=== PATIENT | male | born 1945 | race Caucasian/White ===

== ENCOUNTER 2020-10-12 10:48 | Inpatient (IN) | payer OTHER ==
[~2020-10-12] VITALS: Ht 190.5 cm; Wt 62.6 kg
[2020-10-12 10:49] VITALS: BP 114/90
[2020-10-12 11:56] LABS: URINE BILIRUBIN 2+ (Negative); URINE BLOOD 3+ (Negative); URINE CLARITY CLEAR; URINE COLOR YELLOW; URINE GLUCOSE-RANDOM* NEGATIVE (Negative); URINE KETONES 1+ (Negative); URINE LEUKOCYTES-REFLEX NEGATIVE (Negative); URINE NITRITE-REFLEX NEGATIVE (Negative); URINE PROTEIN (DIPSTICK) 3+ (Negative); URINE SPECIFIC GRAVITY >= 1.030 (1.005-1.035); URINE UROBILINOGEN 0.2 E.U./dl (0.2-1.0)
[2020-10-12 12:11] LABS: ABSOLUTE NEUTROPHILS 7.8 thou/uL (1.4-8.2); BASOPHILS 0.1 % (0.0-2.0); HEMATOCRIT 46.6 % (42.0-52.0); HEMOGLOBIN 15.7 gm/dL (14.0-18.0); LYMPHOCYTES 8.1 % (24.0-44.0); MCH 32.9 pg (26.0-34.0); MCHC 33.6 g/dL (28.0-37.0); PLATELET COUNT 208 thou/uL (150-400); POLYS 82.8 % (36.0-66.0); RBC 4.75 mil/uL (4.50-6.00); RDW 14.3 % (10.5-14.5); WBC 9.5 thou/uL (4.0-11.0)
[2020-10-12 12:22] LABS: FINE GRANULAR CASTS 0-3 Few /LPF (None Seen); HYALINE CASTS 4-10 Moderate /LPF (None Seen)
[2020-10-12 12:24] LABS: CRYSTALS None Seen /LPF (None Seen); SQUAMOUS 0-3 Few /LPF (0-3); URINE RBC 3-10 Few /HPF (NONE SEEN); URINE WBC-REFLEX 6-15 Few /HPF (0-5)
[2020-10-12 12:24] LABS: MAGNESIUM 1.3 mg/dL (1.8-2.4); PHOSPHORUS 4.5 mg/dL (2.6-4.7)
[2020-10-12 12:25] LABS: BACTERIA-REFLEX 1-9 Few /HPF (None Seen)
[2020-10-12 12:25] LABS: CREATININE 1.7 mg/dL (0.7-1.3); POTASSIUM 4.5 mmol/L (3.5-5.1)
[2020-10-12 12:28] LABS: APTT 25.7 Seconds (24.5-32.8); INR 0.94; PROTIME 10.3 Seconds (10.5-12.1)
[2020-10-12 12:42] LABS: ALBUMIN 3.1 g/dL (3.4-5.0); TOTAL BILIRUBIN 0.5 mg/dL (0.2-1.0); TOTAL PROTEIN 7.8 g/dL (6.4-8.2); TROPONIN-I 0.07 ng/mL (<0.06)
[2020-10-12 14:21] LABS: AMP/METHAMP Negative (Negative); BARBITURATES Negative (Negative); BENZODIAZEPINES Negative (Negative); COCAINE Negative (Negative); METHADONE Negative (Negative); OPIATES Negative (Negative); PCP Negative (Negative)
[2020-10-12 14:34] VITALS: BP 136/73
--- NOTE | 2020-10-12 14:55 | NUR ---
IV TEAM AT BEDSIDE TO PLACE LINE
[2020-10-12 16:08] VITALS: BP 127/68
--- NOTE | 2020-10-12 17:01 | NUR ---
VAT CONSULTED FOR PICC PLACEMENT. PT'S LABS,HX,MEDS,ORDER AND CONSENT VERIFIED. DISCUSSED BENEFITS AND RISK WITH PT, VERBALIZED UNDERSTANDING. RONEN FRANCIS WAS WIDELY PATENT WITH USG. 4FR DL POWER PICC TRIMMED TO 40CM INSERTED TO 0CM. PLACEMENT CONFIRMED WITH PEAKED P-WAVES ON 3CG. PT TOLERATED WELL
--- NOTE | 2020-10-12 17:13 | NUR ---
PICC RELEASED FOR IMMEDIATE USE PER PROTOCOL
--- NOTE | 2020-10-12 20:16 | NUR ---
RN ADMITTED PT FROM ER ABOUT 1700PM, PT IS A&OX2 ( PERSON AND PLACE), PT IS CONFUSED AT TIME, PT'S ADMITTED ASSESSMENT HAS DONE, PT'S CIWA SCORES ARE 4, NO MEDICATION NEED PER ORDER. PT HAS STARTED IV FLUID AND MAG REPLAEMENT , RN HAS REPORTED TO NEXT SHIFT TO KEEP EYE ON PT, AND TO ASSESSMENT PT'S WOUND.
[2020-10-12 21:05] VITALS: BP 119/57
--- NOTE | 2020-10-13 02:18 | NUR ---
PT WAS OBSERVED LYING DOWN ON HIS BED WATCHING TV AT SHIFT CHANGE.PT C/O PAIN TO HIS L WRIST AND HIP,COMMERCIAL PLUMBER ON DUTY NOTIFIED,ORDER NOTED AND CARRIED OUT.PT HAS ULCER TO HIS L WRIST,L HIP AND L SECOND TOE.DRSG DONE.MULTIPLE ABRAISIONS NOTED TO KNEE,ELBOW,CHEST AND L ANKLE.PT WITH R BKA.CIWA PROTOCOL CONT,SCORED 3 ,NO MEDS REQUIRED.PT REQUESTING FOR SODA MULTIPLE TIMES,EDUCATION GIVEN DUE TO DM.PT CONT ON IVF.PT SLEEPING ON HIS BD AT THIS TIME.CALL LIGHT WITHIN REACH.
[2020-10-13 05:00] VITALS: BP 111/73
[2020-10-13 05:29] LABS: HEMATOCRIT 30.9 % (42.0-52.0); MCH 33.3 pg (26.0-34.0); MCHC 33.8 g/dL (28.0-37.0); MCV 98.6 fL (80.0-100.0); RBC 3.14 mil/uL (4.50-6.00); RDW 13.9 % (10.5-14.5); WBC 5.5 thou/uL (4.0-11.0)
[2020-10-13 05:35] LABS: HEMOGLOBIN 10.5 gm/dL (14.0-18.0)
[2020-10-13 05:43] LABS: ALBUMIN 2.2 g/dL (3.4-5.0); ANION GAP 11 mmol/L (7-16); BUN 40 mg/dL (7-18); CALCIUM 7.6 mg/dL (8.5-10.1); CHLORIDE 106 mmol/L (98-107); CO2 25 mmol/L (21-32); CREATININE 1.2 mg/dL (0.7-1.3); GLUCOSE 110 mg/dL (74-106); MAGNESIUM 1.8 mg/dL (1.8-2.4); POTASSIUM 3.7 mmol/L (3.5-5.1); SGOT 49 U/L (15-37); SGPT 34 U/L (16-63); SODIUM 142 mmol/L (136-145); TOTAL BILIRUBIN 0.4 mg/dL (0.2-1.0); TOTAL PROTEIN 5.5 g/dL (6.4-8.2); TROPONIN-I <0.06 ng/mL (<0.06)
[2020-10-13 07:26] VITALS: BP 122/61
--- NOTE | 2020-10-13 07:32 | EKG ---
[place] [address] [facility] [address] ELECTROCARDIOGRAM REPORT Name: RALF MORILLO Room #: 351-P ADM IN M.R.#: [id number] Admission: 10/12/20 Attend Phys: Pranay Gordillo MD Discharge: Date of : 47 Report #: [id number] [facility] Test Date: 2020-10-12 Test Time: 16:15:12 Pat Name: RALF MORILLO Department: Room: 351 P Gender: M Solar Pv Installer: FSCHWALBE : 1945 Requested By: Pranay Gordillo Order Number: [id number] MD: Ion Rodríguez Measurements Intervals [place] Rate: 129 P: 72 UT: 43 QRS: -64 QRSD: 178 T: -67 QT: 392 QTc: 575 Interpretive Statements Sinus tachycardia, artifact Multiform ventricular premature complexes Probable left atrial enlargement RBBB and LAFB Baseline wander in lead(s) V6 No previous ECG available for comparison Electronically Signed On 10-13-2020 7:31:57 CDT by Ion Rodríguez [email or web address] <ELECTRONICALLY SIGNED> By: Ion Rodríguez MD, [facility] 10/13/2031 1615 14 Ion Rodríguez MD, [facility] /EPI
[2020-10-13 11:27] VITALS: BP 108/60
--- NOTE | 2020-10-13 14:40 | EKG ---
[address] [place] [address] ELECTROCARDIOGRAM REPORT Name: RALF MORILLO Room #: 351-P ADM IN M.R.#: [id number] Admission: 10/12/20 Attend Phys: Pranay Gordillo MD Discharge: Date of : 47 Report #: [id number] 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 : 1945 Requested By: Baylee Chiu Order Number: [id number] MD: Ion Rodríguez Measurements Intervals [place] Rate: 99 P: 86 UT: 210 QRS: 175 QRSD: 145 T: 31 QT: 381 QTc: 489 Interpretive Statements Sinus tachycardia Multiple ventricular premature complexes Borderline prolonged UT interval Left atrial enlargement Nonspecific intraventricular conduction delay Inferior infarct, old No previous ECG available for comparison Electronically Signed On 10-13-2020 14:40:31 CDT by Ion Rodríguez [email or web address] <ELECTRONICALLY SIGNED> By: Ion Rodríguez MD, [facility] 10/13/20 1440 D: [id number] Ion Rodríguez MD, FACC /EPI
--- NOTE | 2020-10-13 15:40 | NUR ---
INITIAL ASSESSMENT: Received consult. BRANDY reviewed chart and spoke with nursing and attending physician. Pt was admitted from home after a fall at home. Pt was laying on the ground for about two days after the fall. Pt with hx of right BKA. Therapy has been ordered to evaluate pt for discharge needs. BRANDY met with pt at bedside. Introduced role of SW. Pt is alert/orientated x 4. Pt reports he lives at home alone in a 3rd level apt at [facility]. Pt has a dog, who is currently being taken care of by a neighbor. Pt has elevator access. Pt states he has HH through [employer] and Medicaid in-home care through [facility]. Pt has been to [facility], [facility] and [facility] in the past. Pt reports that he has been fully vaccinated for COVID. Pt has a scooter at home and prosthesis for right BKA. Pt states that his loan collector through [place], has been working on moving him into an ADA compliant apt in his complex. Pt is concerned he may lose that apt while in the hospital. Pt does not have contact info for his classification case manager or who is in charge of the apt. BRANDY provided pt with contact info for BRANDY to provide to his loan collector. Pt states he uses [facility] for in-home Medicaid services. BRANDY provided pt with in-network SNF list for review. BRANDY spoke with deonna at [facility], who states that pt is currently on service for RN and PT servvices. BRANDY spoke with Concha at [facility] who states pt has caregivers in his apt 5 hours 15 minutes daily. Concha will try to find a contact number for pt's classification case manager through [place]. BRANDY is following to assist as needed with discharge planning.
[2020-10-13 19:25] VITALS: BP 122/56
--- NOTE | 2020-10-13 19:52 | NUR ---
RN ASSUMED PT'S CARE AT 0700AM, PT IS A&OX2 ( PERSON AND PLACE), PT CAN FOLLOW COMMANDS, PT IS CONTINUING IV FLUDS AND WOUND CARE , PT HAS PT/OT TO WORK WITH HIM , PT'S VS ARE STABLE, PT DENIES PAIN AND SOB AT DAY SHIFT.
[2020-10-14 03:36] VITALS: BP 124/75
--- NOTE | 2020-10-14 04:34 | NUR ---
PROGRESS PT ALERT AND ORIENTED X4, REPORTS PAIN TO LEFT SIDE FROM WOUNDS FROM FALL REPORTED RELIEF WITH DRESSING CHANGES. EXTREMETIES CLEANSED WITH SOAP AND WATER, WOUNDS CLEANSED WITH SALINE GENTAMYCIN APPLIED, XEROFORM, ABD AND WRAPPED WITH KERLIX. TELE INTACT READING SA RATES IN 69. CIWA SCORE 1 ATIVAN 1 MG PO X1 FOR SLIGHT ANXIETY AND TO HELP PT SLEEP.
[2020-10-14 07:19] VITALS: BP 129/60
[2020-10-14 09:37] LABS: HEMATOCRIT 29.7 % (42.0-52.0); HEMOGLOBIN 9.8 gm/dL (14.0-18.0); MCH 32.6 pg (26.0-34.0); MCHC 32.9 g/dL (28.0-37.0); MCV 99.2 fL (80.0-100.0); RBC 2.99 mil/uL (4.50-6.00); WBC 5.6 thou/uL (4.0-11.0)
[2020-10-14 09:53] LABS: CALCIUM 7.6 mg/dL (8.5-10.1); CREATININE 0.9 mg/dL (0.7-1.3); MAGNESIUM 1.9 mg/dL (1.8-2.4); POTASSIUM 3.9 mmol/L (3.5-5.1); TOTAL BILIRUBIN 0.3 mg/dL (0.2-1.0); TOTAL PROTEIN 4.8 g/dL (6.4-8.2)
[2020-10-14 11:21] VITALS: BP 118/78
--- NOTE | 2020-10-14 12:26 | NUR ---
CM F/U WITH PT RE: SNF CHOICE. PT BECAME AGITATED THROUGHOUT THE COURSE OF CONVERSATION PT IS DISAGREEABLE ABOUT GOING TO SNF, PT HAS STATED ESSENTIALLY THERAPY WILL BE INEFFECTIVE D/T BEING AN BKA AND NOT HAVING HIS ELECTRIC W/C AT THE SNF. PT EXPRESSED CONCERNED THAT HE WILL LOSS IS ADA APT IF THEY FIND OUT HE HAS BEEN HOSPITALIZED AND/OR GO INTO SNF FOR A FEW/SEVERAL WEEKS B/C IT WOULD APPEAR HE IS INCAPABLE OF LIVING INDEPENDENTLY. CM TO [place] BACK WITH PT AFTER LUNCH TO CONTINUE THE DISCUSSION.
--- NOTE | 2020-10-14 15:09 | NUR ---
ASSUMED PT CARE AT SHIFT CHANGE, TYRA ADDED TO PT BED. PT IS VERY EASILY AGITATED/CRANKY WHEN DISCUSSING DC. PT STATES HE WANTS HIS DOG, HIS MOTOR WC, AND A PLACE TO SMOKE. THIS RN COMMUNICATED WITH BRANDY STRONG. URINE YELLOW, WILSON PATENT.
[2020-10-14 16:08] VITALS: BP 123/65
--- NOTE | 2020-10-14 17:19 | NUR ---
WOUND CARE PERFORMED. PICTURES DOCUMENTED IN PT CHART. PT TOLERATED WELL.
[2020-10-14 19:20] VITALS: BP 130/65
[2020-10-14 23:30] VITALS: BP 125/55
[2020-10-15 03:17] VITALS: BP 139/57
--- NOTE | 2020-10-15 04:45 | NUR ---
PT HAS [place] ACCENT. A/0X4 AND CAN BE TAKEN GRUMPY. PT ON BEDREST, DUE TO RECENT FALL. FOLLOWING POC WITH IVF. GAVE PO ATIVAN TO HELP PT RELAX. HOURLY ROUNDING.
[2020-10-15 04:53] LABS: HEMOGLOBIN 9.3 gm/dL (14.0-18.0); MCH 32.9 pg (26.0-34.0); MCHC 33.2 g/dL (28.0-37.0); RBC 2.83 mil/uL (4.50-6.00); RDW 13.9 % (10.5-14.5); WBC 5.2 thou/uL (4.0-11.0)
[2020-10-15 05:05] LABS: CALCIUM 7.8 mg/dL (8.5-10.1); CREATININE 0.8 mg/dL (0.7-1.3); MAGNESIUM 1.5 mg/dL (1.8-2.4); POTASSIUM 3.8 mmol/L (3.5-5.1)
--- NOTE | 2020-10-15 07:37 | NUR ---
YEVGENIY PGD REGARDING VTACH DURING NIGHT.
[2020-10-15 07:50] VITALS: BP 120/58
--- NOTE | 2020-10-15 10:19 | HC ---
[facility] [place] [address] CONSULTATION Name: RALF MORILLO Room #: 351-P ADM IN M.Arun.#: [id number] Admission: 10/12/20 Attend Phys: Pranay Gordillo MD Discharge: Date of : 46 Report #: [id number] THIS REPORT FOR: cc: FAM - Family physician unknown FAM - Family physician unknown River Izaguirre DO ~ DOC #: [id number] RIVER Izaguirre DO DATE OF SERVICE: 10/13/2020 INPATIENT PSYCHIATRIC EVALUATION FOR CAPACITY TO MAKE HEALTHCARE DECISIONS PRIMARY TEAM ATTENDING: Pranay Gordillo MD CONSULTING PSYCHIATRIST: River Izaguirre DO SOURCES OF INFORMATION: Chart review, discussion with Dr. Gordillo and bedside interview with the patient. CHIEF COMPLAINT: Unspecified. HISTORY OF PRESENT ILLNESS: This is a 75-year-old male with a number of history of chronic health problems including amputation of one leg. The patient was seen at bedside today. He was on some oxygen, but was alert and fully oriented except he did not know the date, believed it was vs . The patient was able to speak with me about his health care condition. From his discussion as well as chart review, it was clear that he lives on his own in independent living. The patient had a fall a couple of days before the admission, could not get up. 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 The patient admits that he should be living in an assisted living facility where he has 24-hour assistance. He is willing to do that. He states that he can only afford about a 1000 dollars a month. He states the assisted living is around 4000 dollars a month. The patient unfortunately is correct about that, the goign rate is around that figure. The patient did not admit to me to history of chronic and daily alcohol abuse, but this is certainly a possibility. The patient does currently receive home health care. PAST MEDICAL HISTORY: Includes acute kidney injury, hypomagnesemia, lactic acidosis, rhabdomyolysis. PAST SURGICAL HISTORY: Includes right BKA, left toe amputations. PSYCHIATRIC HISTORY: Includes chronic tobacco abuse, possible alcohol abuse. [facility] [address] [place] [address] CONSULTATION Name: RALF MORILLO Room #: 351-P ADM IN MBjorn.#: [id number] Admission: 10/12/20 Attend Phys: Pranay Gordillo MD Discharge: Date of : 47 Report #: [id number] REVIEW OF SYSTEMS: a 14-point review of systems was done and was negative other than what is HPI per Dr. Gordillo's note: The patient was admitted for severe rhabdomyolysis, given IV fluids. LABORATORY DATA: Of note, this admission include urine culture that was negative. Blood cultures that were negative so far. Significant laboratories from 10/13, H and H 10.5 and 30.9, likely dilutional in nature because previously 15.7 and 46.6, white count 5.5, platelet count 121, down from 208. Coags: PT 10.3, INR 0.94. Chemistries: Blood sugar running 110 today. Magnesium was 2.2. Admission sodium 142, potassium 3.7 , chloride 106, bicarbonate 25, anion gap 11, BUN 40, creatinine 1.2, estimated GFR 59. Lactic acid was 2.5, calcium 10.6, which is low; phosphorus 4.5, magnesium 2.2, total bilirubin 0.4. GGT 12. AST slightly high at 49, ALT normal at 34, . CK 1480, albumin 2.2. B12 46. Folate 27. TSH 3.192, free T4 slightly high at 1.5. Blood alcohol level was 0. Urine toxicology was negative. He did have some abnormal findings in his urine, but again negative by culture, positives were ketones, blood, some protein. 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 Chest x-ray this admission showed no acute cardiopulmonary findings. PHYSICAL EXAMINATION: VITAL SIGNS: Temperature afebrile, pulse 80, respirations 20, BP 122/56. MUSCULOSKELETAL: Lying in bed with the back of the bed having propped up. Appearing, disheveled. MENTAL STATUS EXAMINATION: This is a well-developed quite ill-appearing male appearing stated age. Attention fair. Concentration limited. Speech hoarse, but normal rate. Thought process, linear and goal directed. THOUGHT CONTENT: mood/affect: constrcited, congruent, frustrated Focused on his physical and medical situation. Denied suicidal intent or plan. He denied homicidal intent or plan. Denies auditory, visual, or tactile hallucinations. Memory not formally tested, but was able to relate to events noted in the medical chart in the past few days. Insight and judgment were fair and limited respectively. Fund of knowledge, slightly above average. FORMULATION: A 75-year-old male admitted after a fall, rhabdomyolysis, numerous medical problems. [facility] [address] [place] [address] CONSULTATION Name: RALF MORILLO Room #: 351-P ADM IN M.Arun.#: [id number] Admission: 10/12/20 Attend Phys: Pranay Gordillo MD Discharge: Date of : 47 Report #: [id number] DIAGNOSES: At this time is delirium, secondary to general medical condition, resolving. Substance use disorder for alcohol suspected, though not proven. Deconditioning and debility. FINDINGS: Regarding the question of capacity to make healthcare decision, given that he was almost fully oriented to month, year, day, several days off by date, is somewhat a good indicator; however, the reason what I would find this patient does presently have capacity to make medical and healthcare decisions if he could discuss with me and relate the events that have happened and the risks that he is facing by living alone and understanding the need for assisted living. This patient does present a common, but very practical problem of geriatric aware of the funding sources are just not there to serve a patient like this. Hopefully, the case management staff and Dr. Gordillo will find a way to get this patient into assisted living level of care. Findings were relayed to Dr. Gordillo. Time spent on this case was greater than 45 minutes. DO DAMARI White/LINDSAY/LUCIANO <ELECTRONICALLY SIGNED> By: River Izaguirre DO 10/15/20 1019 [id number] [id number] River Izaguirre DO /nt
--- NOTE | 2020-10-15 11:06 | 2DMMODE ---
[facility] [place] [address] 2 D/M-MODE ECHOCARDIOGRAM Name: RALF MORILLO Room #: 351-P ADM IN M.R.#: [id number] Admission: 10/12/20 Attend Phys: Pranay Gordillo MD Discharge: Date of : 47 Report #: [id number] THIS REPORT FOR: cc: FAM - Family physician unknown FAM - Family physician unknown Ion Rodríguez MD [facility] ~ APPROVED REPORT Study performed: 10/15/2020 10:11:35 EXAM: Comprehensive 2D, Doppler, and color-flow Echocardiogram Patient Location: Bedside Room #: [facility] Status: routine BSA: 1.87 HR: 58 bpm BP: 120/58 mmHg Rhythm: Bradycardia Other Information Study Quality: Adequate Indications Arrhythmia NSVT 2D Dimensions IVC: 12.00 mm Aortic Valve AoV Peak Kj.: 1.56 m/s AO Peak Gr.: 9.74 mmHg LVOT Max P.88 mmHg LVOT Max V: 0.99 m/s Mitral Valve E/A Ratio: 0.9 MV Decel. Time: 254.08 ms MV E Max Kj.: 0.72 m/s MV A Kj.: 0.84 m/s MV PHT: 73.68 ms IVRT: 124.57 ms Pulmonary Valve PV Peak Kj.: 0.86 m/s PV Peak Gr.: 2.99 mmHg [facility] [address] [place] [address] 2 D/M-MODE ECHOCARDIOGRAM Name: RALF MORILLO Room #: 351-P ADM IN M.R.#: [id number] Admission: 10/12/20 Attend Phys: Pranay Gordillo MD Discharge: Date of : 47 Report #: [id number] Pulmonary Vein P Vein S: 0.63 m/s P Vein A: 0.22 m/s P Vein D: 0.28 m/s P Vein A Dur.: 152.2 msec P Vein S/D Ratio: 2.25 Left Ventricle The left ventricle is normal size. There is normal LV segmental wall motion. There is normal left ventricular wall thickness. The left ventricular systolic function is normal. The left ventricular ejection fraction is within the normal range. LVEF is 50-55%. Grade I - abnormal relaxation pattern. Right Ventricle The right ventricle is normal size. The right ventricular systolic function is normal. Atria Left atrium is at the upper limits of normal. The right atrium size is normal. Aortic Valve The aortic valve is normal in structure. The Aortic valve is sclerotic. No aortic regurgitation is present. There is no aortic valvular stenosis. Mitral Valve The mitral valve is normal in structure. Trace mitral regurgitation. No evidence of mitral valve stenosis. Tricuspid Valve The tricuspid valve is normal in structure. There is no tricuspid valve regurgitation noted. Pulmonic Valve The pulmonary valve is normal in structure. Trace pulmonic regurgitation. Great Vessels The aortic root is normal in size. IVC is normal in size and collapses >50% with inspiration. Pericardium There is no pericardial effusion. <Conclusion> [facility] [address] [address] 2 D/M-MODE ECHOCARDIOGRAM Name: JODIE MORILLODRICK Room #: 351-P ADM IN M.R.#: [id number] Admission: 10/12/20 Attend Phys: Pranay Gordillo MD Discharge: Date of : 47 Report #: [id number] Normal left ventricular size/wall thickness Ejection fraction 55% Grade 1 diastolic dysfunction Normal right ventricular size/function Normal atrial size Color-flow Doppler study was performed of the aortic/mitral/tricuspid/pulmonary valve Aortic valve mildly sclerotic without stenosis Normal mitral valve structure and function No tricuspid valve insufficiency No pericardial effusion Normal aortic root size. <ELECTRONICALLY SIGNED> By: Ion Rodríguez MD, FACC 10/15/20 1106 05 Ion Rodríguez MD, FACC /INF
[2020-10-15 15:49] VITALS: BP 155/72
--- NOTE | 2020-10-15 16:00 | NUR ---
BRANDY reviewed chart and spoke with nursing and attending physician. Cardiology consulted today. Pt [facility] BRANDY met with pt at bedside to discuss discharge plan. Lengthy discussion regarding post-acute placement v. Home with HH. Pt concerned about his dog that is at home. Pt states that he will not agree to SNF placement if he is not able to have his scooter at the facility, and if he cannot bring his dog with him. BRADNY explained that there are programs available for temporary pet foster care. Pt states he needs his scooter and prosthesis are in his apt and that he will need them to be able to continue working with therapy. BRANDY discussed case with [place] post-acute liaison, who states that they could arrange for their transportation to pick remover his scooter at his apt building, if someone could bring the scooter outside. They are unable to go into his apt to get the scooter, due to liability reasons. Pt updated with this info. Pt now agreeable with considering SNF placement at [facility]. Pt's friend is able to take care of his dog. BRANDY faxed clinical/therapy updates to [facility] for review. BRANDY updated post-acute liaison who states they will submit to insurance today for authorization. BRANDY faxed info to [employer]. Discharge anticipated for tomorrow. BRANDY updated pt via phone to provide update. Pt verbalized understanding. BRANDY updated pt's nurse. BRANDY is following to assist as needed with discharge planning.
[2020-10-15 19:30] VITALS: BP 160/60
[2020-10-16 03:55] VITALS: BP 171/72
--- NOTE | 2020-10-16 05:12 | NUR ---
WILSON IN PLACE WITH GOOD OUTPUT OF 1200ML. POC WITH IVF. VSS OVERNIGHT. PT STATES "CLOSE THE DOOR AND LET ME SLEEP." TELE SHOWS SR W/BBB. MULTIPLE WOUNDS CAUSED BY PT FALLING DUE TO ETOH. HOURLY ROUNDING.
[2020-10-16 07:34] VITALS: BP 157/87
--- NOTE | 2020-10-16 10:02 | HC ---
[facility] [place] [address] CONSULTATION Name: RALF MORILLO Room #: 351-P ADM IN M.R.#: [id number] Admission: 10/12/20 Attend Phys: Pranay Gordillo MD Discharge: Date of : 47 Report #: [id number] THIS REPORT FOR: cc: FAM - Family physician unknown FAM - Family physician unknown Awais Casanova MD ~ DOC #: [id number] Awais Casanova MD DATE OF SERVICE: 10/13/2020 CHIEF COMPLAINT: Multiple lower extremity ulcerations. HISTORY OF PRESENT ILLNESS: This is a 75-year-old patient with whom I am familiar from multiple hospitalizations, who apparently while living at home lost his balance while in his wheelchair and fell onto the floor, he struck his head. He was unable to get up on his own and apparently laid on the floor for what he says is about 38 hours. He was found by his home health care nurse on Monday and EMS was called and he was brought here through the Emergency Department. He has developed some abrasions and ulcerations following the fall and prolonged period on the floor and I have been asked to see him with regard to wound care. He is awake and alert. He recalls the event, states he did not lose consciousness and simply was pulled off balance by his dog on a lease as he was preparing to let the dog outside. PAST MEDICAL HISTORY: Positive for diabetes mellitus, hypertension, peripheral vascular disease, prior right below-knee amputation, history of chronic alcohol abuse, chronic tobacco abuse. SOCIAL HISTORY: Positive for both current alcohol and tobacco use. FAMILY HISTORY: Noncontributory. MEDICATIONS: Include famotidine, flumazenil, gentamicin, glucagon, insulin, lorazepam, nicotine patch, ondansetron, vitamins, thiamine. ALLERGIES: No known drug allergies. REVIEW OF SYSTEMS: CONSTITUTIONAL: The patient denies fever, chills or weight loss. NEUROLOGICAL: The patient denies focal weakness or tingling. EYES: The patient denies visual changes or sinus drainage. ENT: The patient denies earache, nasal drainage, or sore throat. CARDIOVASCULAR: The patient denies chest pain, palpitations, diaphoresis. PULMONARY: Denies cough, shortness of breath. GASTROINTESTINAL: Denies nausea, vomiting, diarrhea, or abdominal pain. ORTHOPEDIC: The patient complains of some mild pain and multiple abrasions. [facility] [address] [place] [address] CONSULTATION Name: RALF MORILLO Room #: 351-P [facility] IN M.R.#: [id number] Admission: 10/12/20 Attend Phys: Pranay Gordillo MD Discharge: Date of : 47 Report #: [id number] Other systems in a 14-point review of systems are negative. PHYSICAL EXAMINATION: VITAL SIGNS: The patient's vital signs at this time include temperature of 98.0, pulse 85, respiratory rate of 19, blood pressure of 108/60. GENERAL: This is a chronically ill-appearing male. The patient appears to be in minimal distress. HEENT: The head demonstrates abrasions to the forehead bilaterally. No deep injuries. Head is otherwise atraumatic. Extraocular movements intact. Nose and throat are clear. NECK: Supple. LUNGS: Clear. HEART: Irregular. ABDOMEN: Soft. EXTREMITIES: Demonstrate prior right below-knee amputation that appears to be well healed. He has multiple abrasions to the left upper and lower extremities including a larger area with some eschar involving the left lateral knee. NEUROLOGIC: The patient is alert. He is oriented as his normal baseline. LABORATORY STUDIES: White blood cell count 5.2 with a hemoglobin of 9.3, sodium 143, potassium 3.7, chloride 106, CO2 of 25, BUN 40, creatinine 1.2, glucose 110, albumin is 2.2. CLINICAL IMPRESSION: 1. Multiple abrasions to the forehead, left upper and left lower extremity following a fall. 2. Prior right below-knee amputation. 3. Type 2 diabetes mellitus. 4. History of congestive heart failure. 5. History of hypertension. 6. Generalized debility with recent fall. 7. Moderate to severe protein-calorie malnutrition with albumin 2.2. RECOMMENDATIONS: At this point in time, we will recommend topical gentamicin ointment, Xeroform, Kerlix daily to the areas that are open except for the forehead which can be left open to air. We will recommend aggressive nutritional support. We have discussed alcohol and tobacco counseling in the past and have discussed again with him briefly. He has no intention of discontinuing smoking or drinking alcohol from time to time. He hopes to return to his home and live with his dog, Parveen as soon as possible. We will continue to follow him here closely in the hospital. I appreciate being asked to see him in consultation. MD DELFINA [facility] [address] [place] [address] CONSULTATION Name: RALF MORILLO Room #: 351-P ADM IN M.R.#: [id number] Admission: 10/12/20 Attend Phys: Pranay Gordillo MD Discharge: Date of : 47 Report #: [id number] <ELECTRONICALLY SIGNED> By: Awais Casanova MD 10/16/20 1002 1725 [id number] Awais Casanova MD /nt
--- NOTE | 2020-10-16 11:25 | NUR ---
DISCHARGE NOTE: BRANDY reviewed chart and spoke with nursing and attending physician. Pt is medically stable for discharge today. SW was notified by [facility] liaison, that they did receive insurance auth and can accept pt today. [facility] is unable to set up stretcher van transportation. SW received phone call from pt stating he wants to discharge back home with HH instead of going to the SNF. Pt states he feels he will do better in his home environment and he will still have HH coming out to see him. SW explained the benefits of going to a SNF. Pt verbalized understanding and requests to d/c home as soon as possible. BRANDY updated attending physician. Awaiting finalized discharge ppwk. Pt will return home with [facility] and [facility] (Medicaid in-home care). BRANDY is following to finalize discharge.
[2020-10-16 11:53] VITALS: BP 174/86
[2020-10-16] MEDS ORDERED: AMLODIPINE BESY10 MG PO (12:19)
[2020-10-16] MEDS ORDERED: PRENATAL PO (12:19)
[2020-10-16] MEDS ORDERED: VITAMIN B-1100 M2 PO (12:19)
[2020-10-16 12:31] VITALS: BP 174/86
--- NOTE | 2020-10-16 12:58 | NUR ---
PT RESTING COMFORTABLY IN BED TODAY. WOUND CARE VISITED PT AND CLEAN/DRESSED WOUNDS. PICC LINE DC BY RN, HEMOSTASIS OBTAINED AND PT EDUCATED ON ANY S/S OF BLEEDING/INFECTION. WILSON DC, PT EDUCATED ABOUT IT. PT AFEBRILE, ADEQUATE UOP, NO BM, APPROPRIATE APPETITE. PLAN IS TO DC PT HOME VIA AMBULANCE @1430. PT HAS BEEN THOUROUGHLY UPDATED AND EDUCATED ON CONDITION AND POC. PT PROGRESSING TOWARDS POC.
== END 2020-10-16 16:07 | disposition home health service (06) | DRG 682 ==
LOC: ER 10:48 → 3W 14:17 → EROBS 14:17 → 3W 15:57
PROVIDERS: Internal Medicine; Nurse Practitioner Family; ADMIT Internal Medicine; ATTEND Internal Medicine
PROC: 05HY33Z Insertion of Infusion Device into Upper Vein, Percutaneous Approach (ICD-10-PCS; principal; 2020-10-12)
DX: N17.0 Acute kidney failure with tubular necrosis (principal); G93.41 Metabolic encephalopathy; E43 Unspecified severe protein-calorie malnutrition; M62.82 Rhabdomyolysis; E87.2 Acidosis; Z68.1 Body mass index [BMI] 19.9 or less, adult; I47.1 Supraventricular tachycardia; R77.8 Other specified abnormalities of plasma proteins; E83.42 Hypomagnesemia; T14.8XXA Other injury of unspecified body region, initial encounter; R41.0 Disorientation, unspecified; E11.51 Type 2 diabetes mellitus with diabetic peripheral angiopathy without gangrene; R53.81 Other malaise; S00.81XA Abrasion of other part of head, initial encounter; I50.9 Heart failure, unspecified; S80.812A Abrasion, left lower leg, initial encounter; F17.210 Nicotine dependence, cigarettes, uncomplicated; F10.10 Alcohol abuse, uncomplicated; K80.20 Calculus of gallbladder without cholecystitis without obstruction; Z60.2 Problems related to living alone; G47.00 Insomnia, unspecified; R29.6 Repeated falls; I11.0 Hypertensive heart disease with heart failure; R63.4 Abnormal weight loss; E11.42 Type 2 diabetes mellitus with diabetic polyneuropathy; Z89.511 Acquired absence of right leg below knee; Z86.73 Personal history of transient ischemic attack (TIA), and cerebral infarction without residual deficits; Z71.6 Tobacco abuse counseling; Z89.422 Acquired absence of other left toe(s); W18.39XA Other fall on same level, initial encounter; Y93.89 Activity, other specified; Y92.89 Other specified places as the place of occurrence of the external cause; Y99.8 Other external cause status
CPT/HCPCS: 10879; 27000